=== PATIENT | female | born 2000 | race African-American/Black ===

== ENCOUNTER 2023-09-06 15:41 | Emergency (ER) | payer BC ==
[~2023-09-06] VITALS: Ht 162.6 cm; Wt 117.0 kg
[2023-09-06 15:57] VITALS: O2SAT 100
[2023-09-06] MEDS ORDERED: DOXY-244 MT (18:31)
[2023-09-06] MEDS ORDERED: METR-167 MT (18:31)
[2023-09-06] MEDS ORDERED: NITR-87 MT (18:33)
[2023-09-06] MEDS: CEFTRIAXONE SODIUM 500MG VIAL IM ONE (18:48)
[2023-09-06] MEDS: PENICILLIN G BENZATHINE 2,400,000 UNITS/4ML SYR IM ONE (18:48)
[2023-09-06 19:04] VITALS: BP 102/78; PULSE 75; RESP 18; TEMP 98.2
== END 2023-09-06 19:29 | disposition home or self-care (01) ==
LOC: ER 15:41
DX: N73.9 Female pelvic inflammatory disease, unspecified (principal); Z98.890 Other specified postprocedural states; A64 Unspecified sexually transmitted disease
CPT/HCPCS: 81025; 96372; 99284; J0696; J0561; Z7610